=== PATIENT | female | born 1990 | race African-American/Black ===

== ENCOUNTER 2020-11-20 14:02 | Emergency (ER) | payer OTHER ==
[2020-11-20 15:37] LABS: Urine Blood 3+ (Negative); Urine Glucose Negative (Negative); Urine Protein 3+ (Negative); Urine Specific Gravity 1.025 (1.005-1.030); Urine pH 5.5 (5.0-7.0)
[2020-11-20 15:52] LABS: Urine Specific Gravity/Preg 1.025 (1.005-1.030)
--- NOTE | 2020-11-20 16:13 | RAD REPORT ---
EXAM DESCRIPTION: US - 1St Trimest Single 1St Fetus - 11/20/2020 3:50 pm CLINICAL HISTORY: vaginal bleeding, 11 weeks by patient report COMPARISON: No comparisons FINDINGS: No gestational sac or sac remnant identifiable. Thickened heterogeneous hyperechoic endome trial cavity is present believed to be a combination of endometrial tissue and a large amount of hemo rrhagic material. This does not have the appearance classic for molar . No myometrial mass l esion identified. No blood or fluid in the cul de sac. Neither ovary identified due to bowel. No adnexal mass seen. IMPRESSION: Large amount of hemorrhagic material in the endometrial cavity. No gestational sac ident ified. Neither ovary was identified. No adnexal mass to suspect ectopic .
[2020-11-20 16:41] LABS: Basophils % 0.3 % (0-1.3); Hematocrit 36.6 % (36.0-45.0); Lymphocytes % 7.6 % (15.3-44.8); MPV 10.5 fL (7.6-11.3); RBC Red Blood Cell Count 4.18 M/uL (3.86-4.86)
[2020-11-20 17:52] LABS: BUN Blood Urea Nitrogen 12 mg/dL (7-18); Bicarbonate 23 mmol/L (21-32); Glucose Level 88 mg/dL (74-106); HCG, Quantitative 16853 mIU/mL (1-3); Potassium 3.4 mmol/L (3.5-5.1); Sodium Level 139 mmol/L (136-145)
--- NOTE | 2020-11-20 18:19 | ER ---
Nurse's Notes [facility] Name: Tesfaye Linares Age: 30 yrs Sex: Female : 1990 Arrival Date: 11/20/2020 Time: 14:06 Bed 16 Private MD: Diagnosis: Incomplete spontaneous without complication Presentation: 11/20 14:36 Chief complaint: Patient states: reports vaginal that was bright red when she went to em urinate started 1 hour ago, also reports being 11 weeks , also reports pelvic cramping, first . Coronavirus screen: Client denies travel out of the [place] in the last 14 days. Ebola Screen: Patient negative for fever greater than or equal to 101.5 degrees Fahrenheit, and additional compatible Ebola Virus Disease symptoms Patient denies exposure to infectious person. Patient denies travel to an Ebola-affected area in the 21 days before illness onset. No symptoms or risks identified at this time. Initial Sepsis Screen: Does the patient meet any 2 criteria? No. Patient's initial sepsis screen is negative. Does the patient have a suspected source of infection? No. Patient's initial sepsis screen is negative. Risk Assessment: Do you want to hurt yourself or someone else? Patient reports no desire to harm self or others. Onset of symptoms was November 20, 2020. 14:36 Method Of Arrival: Ambulatory em 14:36 Acuity: JOEL 3 em Triage Assessment: 15:29 General: Appears in no apparent distress. Behavior is calm, cooperative, appropriate tr6 for age. 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 - Social history:: Smoking status: Patient denies any tobacco usage or history of. Screenin:29 Abuse screen: Denies threats or abuse. Denies injuries from another. Nutritional tr6 screening: No deficits noted. Tuberculosis screening: No symptoms or risk factors identified. Fall Risk None identified. Assessment: 15:00 General: Appears in no apparent distress. Behavior is calm, cooperative, appropriate tr6 for age, crying. Pain: Complains of pain in c/o lower abdominal cramping. Neuro: No deficits noted. Cardiovascular: No deficits noted. Respiratory: No deficits noted. GI: No deficits noted. : Reports cramping, vaginal bleeding that is brown, with clots. EENT: No deficits noted. Derm: No deficits noted. Musculoskeletal: No deficits noted. 15:29 Reassessment: pt off unit at ultrasound. pending labs. tr6 16:00 Reassessment: Patient appears in no apparent distress at this time. No changes from tr6 previously documented assessment. Patient and/or family updated on plan of care and expected duration. Pain level reassessed. Patient is alert, oriented x 3, equal unlabored respirations, skin warm/dry/pink. 17:32 Reassessment: Patient appears in no apparent distress at this time. No changes from tr6 previously documented assessment. Patient and/or family updated on plan of care and expected duration. Pain level reassessed. Patient is alert, oriented x 3, equal unlabored respirations, skin warm/dry/pink. pt resting comfortably in bed. pending results. pts significant other at bedside. 18:42 Reassessment: results reviewed with pt at bedside by provider as well as discharge. tr6 Vital Signs: 14:36 BP 164 / 92; Pulse 81; Resp 18; Temp 98.9(O); Pulse Ox 100% on R/A; Weight 60.78 kg; em Height 5 ft. 6 in. (167.64 cm); Pain 7/10; 16:31 BP 145 / 84; tr6 17:33 BP 143 / 83; Pulse 92; Resp 18; Pulse Ox 100% ; tr6 14:36 Body Mass Index 21.63 (60.78 kg, 167.64 cm) em ED Course: 14:06 Patient arrived in ED. ds1 14:39 Triage completed. em 14:39 Arm band placed on. em 14:45 Dallin Lucio PA is PHCP. [facility] 14:45 Deni Pino MD is Attending Physician. jmm 15:30 No provider procedures requiring assistance completed. tr6 15:37 Patient has correct armband on for positive identification. Bed in low position. Call tr6 light in reach. Side rails up X 1. 15:50 US 1st Trimest Single 1st Fetus In Process Unspecified. EDMS 16:30 Inserted saline lock: 20 gauge in left wrist, using aseptic technique. Blood collected. tr6 18:41 IV discontinued, intact, bleeding controlled, No redness/swelling at site. Pressure tr6 dressing applied. Administered Medications: No medications were administered Outcome: 18:19 Discharge ordered by MD. franks 18:47 Patient left the ED. tr6 Signatures: Dispatcher [employer] EDAK Dallin Lucio PA PA jmm Munoz, Edgar, SHAHID RN Britany Deluca ds1 Samara Swift RN RN tr6 Corrections: (The following items were deleted from the chart) 16:32 15:50 In radiology for Transvaginal Study Probe. EDAK EDMS 18:46 18:42 Reassessment: results reviewed with pt at bedside by provider tr6 tr6
--- NOTE | 2020-11-20 18:19 | EDPHYS ---
Physician Documentation [facility] Name: Tesfaye Linares Age: 30 yrs Sex: Female : 1990 Arrival Date: 11/20/2020 Time: 14:06 Bed 16 Private MD: ED Physician Deni Pino HPI: 11/20 15:04 This 30 yrs old Black Female presents to ER via Ambulatory with complaints of Vaginal jmm Bleeding, + Preg <12wks. 15:04 The patient presents to the emergency department with vaginal bleeding. The estimated jmm gestational age is 11 weeks. course: care: private OB physician. Previous pregnancies: the patient has never been . Associated signs and symptoms: Pertinent negatives: fever, frequency, shortness of breath, vaginal discharge, vomiting. The patient has not experienced similar symptoms in the past. 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 - Social history:: Smoking status: Patient denies any tobacco usage or history of. ROS: 15:04 Constitutional: Negative for fever, chills, and weight loss, Cardiovascular: Negative jmm for chest pain, palpitations, and edema, Respiratory: Negative for shortness of breath, cough, wheezing, and pleuritic chest pain. 15:04 : Positive for vaginal bleeding. 15:04 All other systems are negative. Exam: 15:04 Constitutional: This is a well developed, well nourished patient who is awake, alert, jmm and in no acute distress. Head/Face: atraumatic. Eyes: EOMI, no conjunctival erythema appreciated ENT: Moist Mucus Membranes Neck: Trachea midline, Supple Chest/axilla: Normal chest wall appearance and motion. Cardiovascular: Regular rate and rhythm. No edema appreciated Respiratory: Normal respirations, no respiratory distress appreciated Abdomen/GI: Non distended, soft Back: Normal ROM Skin: General appearance color normal MS/ Extremity: Moves all extremities, no obvious deformities appreciated, no edema noted to the lower extremities Neuro: Awake and alert, normal gait Psych: Behavior is normal, Mood is normal, Patient is cooperative and pleasant Vital Signs: 14:36 BP 164 / 92; Pulse 81; Resp 18; Temp 98.9(O); Pulse Ox 100% on R/A; Weight 60.78 kg; em Height 5 ft. 6 in. (167.64 cm); Pain 7/10; 16:31 BP 145 / 84; tr6 17:33 BP 143 / 83; Pulse 92; Resp 18; Pulse Ox 100% ; tr6 14:36 Body Mass Index 21.63 (60.78 kg, 167.64 cm) em MDM: 15:04 Patient medically screened. [facility] 18:17 Data reviewed: vital signs, nurses notes. Counseling: I had a detailed discussion with golden the patient and/or guardian regarding: the historical points, exam findings, and any diagnostic results supporting the discharge/admit diagnosis, lab results, radiology results, the need for outpatient follow up, to return to the emergency department if symptoms worsen or persist or if there are any questions or concerns that arise at home. ED course: Patient is alert and non toxic in appearance in the ED. Advised to follow up with stable manager for further evaluation. Patient understood and agrees with the plan of care. . 11/20 15:12 Order name: Quantitative Hcg; Complete Time: 17:54 [facility] 11/20 15:12 Order name: Abo/rh Typing; Complete Time: 17:27 [facility] 11/20 15:12 Order name: Basic Metabolic Panel; Complete Time: 17:55 [facility] 11/20 15:12 Order name: CBC with Diff; Complete Time: 17:01 [facility] 11/20 15:36 Order name: Urine Dipstick-Ancillary; Complete Time: 15:41 [facility] 11/20 15:42 Order name: Urine --Ancillary (enter results); Complete Time: 15:52 11/20 15:12 Order name: IV Saline Lock; Complete Time: 16:32 [facility] 11/20 15:12 Order name: Labs collected and sent; Complete Time: 16:33 [facility] 11/20 15:12 Order name: NPO; Complete Time: 16:33 [facility] 11/20 15:12 Order name: Urine Dipstick-Ancillary (obtain specimen); Complete Time: 15:49 [facility] 11/20 15:12 Order name: US 1st Trimest Single 1st Fetus; Complete Time: 16:15 [facility] 11/20 16:42 Order name: Labs - recollect needed: recollect all labs; Complete Time: 16:57 bd Administered Medications: No medications were administered Disposition: 11/20/20 18:19 Discharged to Home. Impression: Incomplete spontaneous without complication. - Condition is Stable. - Discharge Instructions: Incomplete Miscarriage. - Medication Reconciliation Form, Thank You Letter, Antibiotic Education, Prescription Opioid Use form. - Follow up: Private Physician; When: 2 - 3 days; Reason: Recheck today's complaints, Continuance of care, Repeat Beta-HCG (48 Hours), Re-evaluation by your physician. Addendum: 11/22/2020 06:38 Co-signature as Attending Physician, Deni Pino MD I agree with the assessment and t w4 plan of care. Signatures: Dispatcher [employer] [facility] Shelbi Gutierrez Joel, PA PA [facility] Gray Ocampo, RN RN Deni Pino MD MD tw4 Samara Swfit RN RN tr6 Corrections: (The following items were deleted from the chart) 11/20 16:32 15:32 Transvaginal Study Probe ordered. [facility] 18:47 18:19 11/20/2020 18:19 Discharged to Home. Impression: Incomplete spontaneous tr6 without complication. Condition is Stable. Forms are Medication Reconciliation Form, Thank You Letter, Antibiotic Education, Prescription Opioid Use. Follow up: Private Physician; When: 2 - 3 days; Reason: Recheck today's complaints, Continuance of care, Repeat Beta-HCG (48 Hours), Re-evaluation by your physician. [facility]
[2020-11-20 19:00] VITALS: TEMP 98.9; O2SAT 100
[2020-11-20 19:03] VITALS: BP 143/83
== END 2020-11-20 18:47 | disposition home or self-care (01) ==
LOC: ER 14:02
DX: O03.4 Incomplete spontaneous abortion without complication (principal)
CPT/HCPCS: 36415; 76801; 76830; 80048; 81003; 81025; 84702; 85025; 86900; 86901; 99283